=== PATIENT | male | born 1950 | race Caucasian/White ===

== ENCOUNTER 2020-03-09 06:02 | Day surgery (SDC) | payer MEDICARE, BC ==
[2020-02-16 10:28] LABS: BASOPHILS % (AUTO) 0.2 % (0-1); EOSINOPHILS % (AUTO) 0 % (0-6); LYMPHOCYTES # (AUTO) 0.9 X10'3 (1.1-4.8); MEAN CORPUSCULAR HEMOGLOBIN 28.6 PG (27.0-31.0); MEAN CORPUSCULAR VOLUME 86.9 FL (78-98); MEAN PLATELET VOLUME 9.1 FL (7.4-10.4); MONOCYTES # (AUTO) 0.5 X10'3 (0-0.9); MONOCYTES % (AUTO) 9.1 % (2-12); NEUTROPHILS # (AUTO) 3.9 X10'3 (1.8-7.7); NEUTROPHILS % (AUTO) 73.7 % (42-75); PRE OP HEMATOCRIT 42.8 % (42.0-52.0); PRE OP HEMOGLOBIN 14.1 g/dL (14.0-17.9); PRE OP PLATELET COUNT 194 X10'3 (140-440); RED BLOOD COUNT 4.92 X10'6 (4.70-6.10); RED CELL DISTRIBUTION WIDTH 15.3 % (11.5-14.5)
[2020-02-16 10:40] LABS: PRE OP INR 1.1 INR
[2020-02-16 10:48] LABS: BLOOD UREA NITROGEN 13 MG/DL (7-18); BUN/CREATININE RATIO 16.7 (5.4-32.0); CHLORIDE 106 MMOL/L (99-107); CREATININE 0.78 MG/DL (0.60-1.10); PRE OP BILIRUB, TOTAL 0.5 MG/DL (0.0-1.0); PRE OP GLUCOSE 103 MG/DL (70-104); eGFR > 90 ML/MIN
[2020-02-16 10:49] LABS: ALBUMIN 3.7 G/DL (3.4-5.0); ALBUMIN/GLOBULIN RATIO 1.1 (1.1-1.5); ALKALINE PHOSPHATASE 57 IU/L (46-116); CALCIUM 8.8 MG/DL (8.5-10.1); PRE OP ALT 17 U/L (30-65); PRE OP ANION GAP 5 (8-16); PRE OP AST 14 U/L (10-37); PRE OP SODIUM 140 MMOL/L (135-145); TOTAL CARBON DIOXIDE 29.3 MMOL/L (24-32); TOTAL PROTEIN 7.2 G/DL (6.4-8.2)
[~2020-03-09] VITALS: Ht 175.3 cm; Wt 104.3 kg
[2020-03-09] VITALS (8 sets, daily range): BP systolic 122–160; BP diastolic 73–95
[~2020-03-09 06:02] MED LIST: ALFU10TA10 PO; ATOR10TA70 PO; CARV-50 PO; CHOL400T8 PO; DOCUMENT DATE & TIME OF BETA-BLOCKER PO ONE; DUTA0.5C17 PO; albuterol 2.5 MG/3 ML nebule NEB ONE; famotidine 20mg tablet PO ONE; oxymetazoline 15 ML nasal spray NS PRN; ringers solution, lacted 1,000 ML IV SCH
[2020-03-09] MEDS ORDERED: cocaine 4% topical solution 4ml bottle ONE (06:41)
[2020-03-09] MEDS ORDERED: LIDOcaine 1% W/epiNEPHrine 1:100,000 20ml vial ONE (06:41)
[2020-03-09] MEDS ORDERED: BUPIVAcaine 0.5% W/EPI /PF 30ml vial ONE (06:42)
[2020-03-09] MEDS ORDERED: oxymetazoline 15 ML nasal spray NS ONE (06:42)
[2020-03-09] MEDS ORDERED: mupirocin 2% ointment 22GM ONE (06:42)
[2020-03-09] MEDS ORDERED: cefTAZidime 1gm inj ONE (07:59)
[2020-03-09] MEDS ORDERED: methylPREDNISolone acetate 80mg/ml inj**IM only ONE (07:59)
[2020-03-09] MEDS ORDERED: midazolam 2 mg/2 ml injection ONE (08:02)
[2020-03-09] MEDS ORDERED: fentaNYL /PF 50mcg/ml 5ml ampule ONE (08:04)
[2020-03-09] MEDS ORDERED: propofol inj 20 ML IV ONE (08:05)
[2020-03-09] MEDS ORDERED: LIDOcaine 2% (20mg/ml) 5ml vial ONE (08:05)
[2020-03-09] MEDS ORDERED: rocuronium 10mg/ml inj IV ONE (08:16)
[2020-03-09] MEDS ORDERED: sevoflurane 250ml liquid IH ONE (08:16)
[2020-03-09] MEDS ORDERED: dexamethasone sod phosphate 4mg/ml inj. ONE (08:24)
[2020-03-09] MEDS ORDERED: ondansetron/PF 4mg/2ml inj ONE (08:24)
[2020-03-09] MEDS ORDERED: ringers solution, lacted 1,000 ML IV SCH (09:04)
[2020-03-09] MEDS ORDERED: morphine 2 MG/ML inj. syringe IV PRN (09:05)
[2020-03-09] MEDS ORDERED: proCHLORperazine 10 MG/2 ml inj IV PRN (09:05)
[2020-03-09] MEDS ORDERED: morphine 4 MG/ML inj SYRINge IV PRN (09:05)
[2020-03-09] MEDS ORDERED: meperidine/PF 25mg/ml syringe IV PRN ×3 (09:05)
[2020-03-09] MEDS ORDERED: ondansetron/PF 4mg/2ml inj IV PRN (09:05)
--- NOTE | 2020-03-09 10:29 | NUR ---
Received from OR via , accompanied by Anesthesiologist DR BLANK and report given by Anesthesiolgist. AWAKENS TO VOICE. VITALS STABLE. DRESSINGS DI. DANYEL PAIN.
[2020-03-09] MEDS ORDERED: salt irrigation nasal spray 45 ML SPRAY NS PRN (10:50)
--- NOTE | 2020-03-09 11:49 | NUR ---
AWAKE AND ORIENTED. VITALS STABLE. DRESSING DI. STATES PAIN IMPROVING. HOME WITH HIS AT THIS TIME.
[2020-03-09] MEDS ORDERED: mupirocin 2% nasal ointment 1gm UD NS SCH (13:00)
== END 2020-03-09 11:49 | disposition home or self-care (01) ==
LOC: PAS 06:02
PROVIDERS: ATTEND Otolaryngology
DX: J34.2 Deviated nasal septum (principal); J34.3 Hypertrophy of nasal turbinates; J32.8 Other chronic sinusitis; J45.909 Unspecified asthma, uncomplicated; I10 Essential (primary) hypertension; M19.90 Unspecified osteoarthritis, unspecified site; Z11.59 Encounter for screening for other viral diseases; Z79.01 Long term (current) use of anticoagulants; Z79.899 Other long term (current) drug therapy; Z96.653 Presence of artificial knee joint, bilateral; Z87.891 Personal history of nicotine dependence; Z98.890 Other specified postprocedural states; Z72.89 Other problems related to lifestyle
CPT/HCPCS: 30140; 30520; 31254; 31267; 36415; 61782; 80053; 82948; 85025; 85576; 85610; 85730; 87635; 93005; A6402; C9250; J0713; J1040; J1100; J2001; J2175; J2250; J2405; J2704; J3010; J7040; J7120; U0003; 88300; 88304; 88311; A4618; A7000